=== PATIENT | male | born 1990 | race Caucasian/White ===

== ENCOUNTER 2016-11-18 11:52 | Emergency (ER) | payer BC ==
[2016-11-18 13:02] LABS: Urine Bilirubin Negative (Negative); Urine Glucose Negative (Negative); Urine Nitrite Negative (Negative)
[2016-11-18] MEDS ORDERED: NS 0.9% 1000 ML*IV.FLUID IV ONE (13:40)
--- NOTE | 2016-11-18 14:42 | ED ---
GI/ HPI - HPI Summary HPI Summary: Pt presents w/ B/L lower back pain (Rt > Lt) and genital pain. Was riding in his car to work Saturday morning when he noticed a quick, sharp pain in the tip of his penis. When he got to work, he thought he may have urinated 2 small flecks of blood into the toilet so he went to [address] [place] [address]. They told him is U/A was normal and did a "reflex test" without abnormal findings (cx?) - no imaging. He has continued to have back pain which he thought may have been soreness from lifting weights recently, but had more genital pain and "pressure " w/ urination today so decided to come here. Denies N/V/D, ab pain, urinary frequency/hesitation, rectal pain or fullness, testicular pain/swelling, penile d/c. No h/o UTI, pyelonephritis nor kidney stones but he does admit he drinks alot of coffee. Reports he's been drinking alot of water since sx started. NOTE: also admits he recently stopped propecia - adverse effects are prostate CA. - History of Current Complaint Chief Complaint: EDUrogenitalProblems Time Seen by Provider: 11/18/16 12:53 Stated Complaint: FLANK PAIN, GROIN PAIN Hx Obtained From: Patient Pain Intensity: 6 - Allergy/Home Medications Allergies/Adverse Reactions: Allergies Allergy/AdvReac Type Severity Reaction Status Date / Time No Known Allergies Allergy Verified 07/17/16 20:50 PMH/Surg Hx/FS Hx/Imm Hx Previously Healthy: Yes Endocrine/Hematology History: Denies: Autoimmune Disease Cardiovascular History: Reports: Hx Hypertension Denies: Hx Coronary Artery Disease Infectious Disease History: No Infectious Disease History: Denies: Traveled Outside the [place] in Last 30 Days - Family History Known Family History: Negative: Cardiac Disease - Social History Occupation: Employed Full-time - HS teacher Alcohol Use: Rare Hx Substance Use: No Substance Use Type: Reports: None Hx Tobacco Use: No Smoking Status (MU): Never Smoked Tobacco Review of Systems Negative: Fever, Chills Negative: Chest Pain Negative: Shortness Of Breath Negative: Abdominal Pain, Vomiting, Diarrhea, Nausea Positive: see HPI Musculoskeletal: Other - see HPI Negative: Weakness, Paresthesia, Numbness Psychological: Normal - concerned All Other Systems Reviewed And Are Negative: Yes Physical Exam Triage Information Reviewed: Yes Vital Signs On Initial Exam: Initial Vitals Temp Pulse Resp BP Pulse Ox 98.7 F 60 16 117/63 100 11/18/16 12:04 11/18/16 12:04 11/18/16 12:04 11/18/16 12:04 11/18/16 12:04 Vital Signs Reviewed: Yes Appearance: Positive: Well-Appearing, No Pain Distress, Well-Nourished Skin: Positive: Warm, Dry Head/Face: Positive: Normal Head/Face Inspection Eyes: Positive: Normal, EOMI, Conjunctiva Clear - anicteric sclera ENT: Positive: Hearing grossly normal, Pharynx normal - mucosa moist Neck: Positive: Supple, Nontender Respiratory/Lung Sounds: Positive: Clear to Auscultation, Breath Sounds Present Cardiovascular: Positive: Normal, RRR Abdomen Description: Positive: Nontender, No Organomegaly, Soft, CVA Tenderness (R), CVA Tenderness (L) Bowel Sounds: Positive: Present Male Genital Exam: Positive: normal genitalia, normal prostate - NTTP, no enlargement nor bogginess nor nodules appreciated. Negative: bleeding, epididymal tenderness, hernia mass, inguinal tenderness, lesions, scrotum tenderness (R), scrotum tenderness (L), testicular tenderness (R), testicular tenderness (L), urethral discharge Musculoskeletal: Positive: Normal, Strength/ROM Intact - spinous pp NTTP, QL's are NTTP; (-) SLR B/L Neurological: Positive: Normal, Sensory/Motor Intact, Alert, Oriented to Person Place, Time, CN Intact II-III Psychiatric: Positive: Anxious Diagnostics - Vital Signs Vital Signs Temp Pulse Resp BP Pulse Ox 11/18/16 12:04 98.7 F 60 16 117/63 100 - Laboratory Lab Results: Lab Results 11/18/16 Range/Units 12:40 Urine Color Colorless Urine Appearance Clear Urine pH 7.0 (5-9) Ur Specific [place] 1.002 L (1.010-1.030) Urine Protein Negative (Negative) Urine Ketones Negative (Negative) Urine Blood Negative (Negative) Urine Nitrate Negative (Negative) Urine Bilirubin Negative (Negative) Urine Urobilinogen Negative (Negative) Ur Leukocyte Esterase Negative (Negative) Urine Glucose Negative (Negative) Result Diagrams: 11/18/16 12:40 11/18/16 12:40 Lab Statement: Any lab studies that have been ordered have been reviewed, and results considered in the medical decision making process. G[facility]U Course/Dx - Diagnoses Provider Diagnoses: DYSURIA, BACK PAIN Discharge - Discharge Plan Condition: Stable Disposition: HOME Patient Education Materials: Back Pain (ED), Dysuria (ED) Referrals: Ciera Mohamud MD [Medical Doctor] - Additional Instructions: The cause of your pain today was not identified however you were not found to have a kidney stone nor were you found to have a kidney infection. Your CT also did not indicate pathology of your prostate or spine. Your genital and prostate exams were normal. It is suspected that you could have passed a stone without residual effects. You also could have muscle strain from recent weight lifting activities. It is important that you follow-up with your PCP if symptoms persist in an effort to better identify the issue. In the meantime, you may try ice, heat, stretches and ibuprofen with food as needed for pain. *If you develop fever, chills, abdominal pain, blood in urine, vomiting, lower extremity weakness, incontinence of bowels/bladder return to ED
[2016-11-18 14:46] LABS: Hematocrit 48 % (42-52); Hemoglobin 15.6 g/dl (14.0-18.0); Mean Corpuscular HGB Conc 33 g/dl (31-36); Mean Corpuscular Hemoglobin 28 pg (27-31); Mean Corpuscular Volume 87 fL (80-94); Mean Platelet Volume 8 um3 (7.4-10.4); Red Blood Count 5.49 10^6/ul (4.0-5.4); Red Cell Distribution Width 14 % (10.5-15); White Blood Count 6.7 10^3/ul (3.5-10.8)
[2016-11-18 14:58] LABS: Albumin 4.4 g/dL (3.2-5.2); Calcium 9.4 mg/dL (8.6-10.3); EGFR African American 99.9 (>60); EGFR Non-African American 77.6 (>60); Globulin 2.7 g/dL (2-4); Potassium 4.2 mmol/L (3.5-5.0); Total Bilirubin 0.6 mg/dL (0.2-1.0); Total Protein 7.1 g/dL (6.4-8.9)
--- NOTE | 2016-11-18 15:11 | RAD ---
INDICATION: Dysuria, right greater than left flank abdominal pain. COMPARISON: Comparison is made with a prior CT of the abdomen and pelvis from May 02, 2011. TECHNIQUE: A CT scan of the abdomen and pelvis was performed without intravenous or oral contrast. Contiguous axial sections were obtained from the lung bases through the symphysis pubis. Images were reconstructed in the coronal and sagittal planes. FINDINGS: The lung bases are clear. No pleural effusion is present. The liver and spleen are within normal limits in size without significant focal abnormality on this noncontrast study. No calcified gallstones are seen. The pancreas appears to be within normal limits in size. The adrenal glands and kidneys are normal in size. No renal calculi or hydronephrosis is seen. No ureteral or bladder calculi are seen. The aorta is normal in caliber without significant calcific plaque. No significant enlarged retroperitoneal lymph nodes are seen. The stomach, small and large bowel appear nondistended. The appendix is not visualized. There is mild descending and sigmoid diverticulosis without evidence for diverticulitis. No free intraperitoneal air or fluid is seen. No significant focal osseous abnormality is seen. IMPRESSION: NO EVIDENCE FOR ACUTE FINDING OR CAUSE FOR THE PATIENT'S ABDOMINAL PAIN IS SEEN.
[2016-11-18 16:17] VITALS: BP 114/58
[2016-11-19] MEDS ORDERED: NS 0.9% 1000 ML* 1,000 ML IV ONE (15:09)
== END 2016-11-18 16:16 | disposition home or self-care (01) ==
LOC: ED 11:52
DX: R30.0 Dysuria (principal); M54.5 Low back pain
CPT/HCPCS: 36415; 74176; 80053; 81003; 85025; 99282